=== PATIENT | male | born 2000 | race Caucasian/White ===

== ENCOUNTER 2020-05-19 07:03 | Inpatient (IN) | payer MEDICAID ==
[~2020-05-19] VITALS: Ht 172.7 cm; Wt 80.7 kg
[2020-05-19] MEDS ORDERED: SODIUM CHLORIDE 0.9% 1,000 ML IV ONE (08:07)
[2020-05-19] MEDS ORDERED: KETOROLAC 30MG/ML VIAL IV STA (08:07)
[2020-05-19] MEDS ORDERED: FAMOTIDINE 20MG/2ML VIAL IV STA (08:07)
[2020-05-19] MEDS ORDERED: ONDANSETRON HCL 4MG/2ML INJ IV STA (08:07)
[2020-05-19 08:24] LABS: CHLORIDE 106 mEq/L (98-107)
[2020-05-19 08:25] LABS: BASOPHILS % 0.3 % (0.0-2.0); EOSINOPHILS % 0.2 % (0.0-5.0); HEMOGLOBIN. 14.9 g/dL (14.0-18.0); LYMPHOCYTES % 13.7 % (20.0-50.0); MEAN CORPUSCULAR VOLUME 87.8 fL (80.0-94.0); MEAN PLATELET VOLUME 8.3 fl (7.4-10.4); MONOCYTES % 1.5 % (2.0-8.0); NEUTROPHILS % 84.3 % (40.0-76.0); PLATELET 475 x1000/uL (130-400); RED BLOOD CELL COUNT 5.13 mill/uL (4.7-6.1)
[2020-05-19 08:29] LABS: ETHANOL BLOOD < 10 mg/dL
[2020-05-19 08:47] LABS: INR 1.1; PROTHROMBIN TIME 11.4 sec (9.6-11.0)
[2020-05-19] MEDS ORDERED: PIPERACILLIN/TAZ 3.375G PREMIX 50 ML IV ONE ×2 (09:30→09:57)
[2020-05-19] MEDS ORDERED: CLONIDINE 0.1MG TABLET PO PRN (11:30)
[2020-05-19] MEDS ORDERED: ONDANSETRON HCL 4MG/2ML INJ IV PRN (11:30)
[2020-05-19] MEDS ORDERED: DIPHENHYDRAMINE 50MG/ML VIAL IV PRN (11:30)
[2020-05-19] MEDS ORDERED: ACETAMINOPHEN 325MG TABLET PO PRN (11:30)
[2020-05-19 11:31] LABS: CLARITY URINE CLEAR (CLEAR); COLOR URINE YELLOW (YELLOW); KETONES URINE 2+ (NEGATIVE); LEUKOCYTE ESTERASE URINE NEGATIVE (NEGATIVE); NITRITE URINE NEGATIVE (NEGATIVE); OCCULT BLOOD URINE NEGATIVE (NEGATIVE); PROTEIN URINE NEGATIVE (NEGATIVE); SPECIFIC GRAVITY URINE 1.015 (1.005-1.030)
[2020-05-19 12:03] LABS: *AMPHETAMINES SCREEN URINE NEGATIVE (NEGATIVE); *BARBITURATES SCREEN URINE NEGATIVE (NEGATIVE); *BENZODIAZEPINES SCREEN URINE NEGATIVE (NEGATIVE); *COCAINE SCREEN URINE NEGATIVE (NEGATIVE); CANNABINOID URINE SCREEN NEGATIVE (NEGATIVE); METHADONE URINE SCREEN NEGATIVE (NEGATIVE); OPIATES URINE SCREEN NEGATIVE (NEGATIVE); PHENCYCLIDINE URINE SCREEN NEGATIVE (NEGATIVE)
[2020-05-19 12:09] LABS: PHOSPHORUS 3.9 mg/dL (2.5-4.9)
[2020-05-19] MEDS: SODIUM CHLORIDE 0.9% 1,000 ML IV SCH (12:24)
[2020-05-19 14:29] VITALS: BP 126/70
[2020-05-19] MEDS ORDERED: PIPERACILLIN/TAZOBACTAM 3.375 G in DEXT 5% WATER 100 ML IV SCH (16:00)
[2020-05-19] MEDS: PIPERACILLIN/TAZOBACTAM 3.375 G in DEXT 5% WATER 100 ML IV SCH (17:29)
[2020-05-19] MEDS: MORPHINE SULFATE 2 MG/ML CPJ (NOT FOR IM USE) IV PRN (18:01)
[2020-05-19] MEDS ORDERED: OMEP20TA2 MT (19:53)
[2020-05-19 20:22] VITALS: BP 121/67
[2020-05-20] VITALS: BP 119/60
[2020-05-20] MEDS: PIPERACILLIN/TAZOBACTAM 3.375 G in DEXT 5% WATER 100 ML IV SCH ×5 (00:34→21:35)
[2020-05-20 04:00] VITALS: BP 94/72
[2020-05-20] MEDS: SODIUM CHLORIDE 0.9% 1,000 ML IV SCH ×2 (04:40→12:26)
[2020-05-20 07:46] LABS: BASOPHILS % 0.5 % (0.0-2.0); EOSINOPHILS % 0.5 % (0.0-5.0); HEMATOCRIT. 39.2 % (42.0-52.0); HEMOGLOBIN. 13.3 g/dL (14.0-18.0); LYMPHOCYTES % 18.5 % (20.0-50.0); MEAN CORPUSCULAR HEMOGLOBIN 29.1 pg (28.0-32.0); MEAN CORPUSCULAR VOLUME 86.1 fL (80.0-94.0); MEAN PLATELET VOLUME 8.8 fl (7.4-10.4); MONOCYTES % 4.4 % (2.0-8.0); NEUTROPHILS % 76.1 % (40.0-76.0); PLATELET 359 x1000/uL (130-400); RED BLOOD CELL COUNT 4.55 mill/uL (4.7-6.1)
[2020-05-20 07:49] LABS: CHLORIDE 108 mEq/L (98-107)
[2020-05-20 07:57] LABS: LDL CHOLESTEROL 57 mg/dL (5-100)
[2020-05-20 07:58] LABS: HDL CHOLESTEROL 38 mg/dL (40-59)
[2020-05-20 08:00] VITALS: BP 126/63
[2020-05-20 12:00] VITALS: BP 117/84
[2020-05-20 16:00] VITALS: BP 103/67
[2020-05-20 20:00] VITALS: BP 123/79
[2020-05-21] MEDS: MORPHINE SULFATE 2 MG/ML CPJ (NOT FOR IM USE) IV PRN ×4 (00:10→23:37)
[2020-05-21 00:28] VITALS: BP 134/102
[2020-05-21 04:00] VITALS: BP 122/89
[2020-05-21] MEDS: PIPERACILLIN/TAZOBACTAM 3.375 G in DEXT 5% WATER 100 ML IV SCH ×4 (04:46→22:14)
[2020-05-21 07:30] LABS: CHLORIDE 106 mEq/L (98-107)
[2020-05-21 08:00] VITALS: BP 94/60
[2020-05-21 08:03] LABS: HEMATOCRIT. 40.2 % (42.0-52.0); HEMOGLOBIN. 13.4 g/dL (14.0-18.0); MEAN CORPUSCULAR HEMOGLOBIN 28.7 pg (28.0-32.0); MEAN CORPUSCULAR VOLUME 86.4 fL (80.0-94.0); MEAN PLATELET VOLUME 9.1 fl (7.4-10.4); PLATELET 359 x1000/uL (130-400); RED BLOOD CELL COUNT 4.66 mill/uL (4.7-6.1); RED CELL DISTRIBUTION WIDTH 14.1 % (11.6-14.6)
[2020-05-21] MEDS: SODIUM CHLORIDE 0.9% 1,000 ML IV SCH (13:44)
[2020-05-21 16:00] VITALS: BP 112/72
[2020-05-21 16:36] LABS: PLATELET ESTIMATE NORMAL
[2020-05-21 20:00] VITALS: BP 129/83
[2020-05-22] VITALS: BP 126/65
[2020-05-22] MEDS: PIPERACILLIN/TAZOBACTAM 3.375 G in DEXT 5% WATER 100 ML IV SCH ×4 (03:58→22:50)
[2020-05-22] MEDS: SODIUM CHLORIDE 0.9% 1,000 ML IV SCH ×2 (03:59→13:46)
[2020-05-22 04:00] VITALS: BP 106/72
[2020-05-22 06:48] LABS: CHLORIDE 106 mEq/L (98-107)
[2020-05-22 06:49] LABS: BASOPHILS % 0.2 % (0.0-2.0); EOSINOPHILS % 0.2 % (0.0-5.0); HEMATOCRIT. 40.7 % (42.0-52.0); HEMOGLOBIN. 13.6 g/dL (14.0-18.0); LYMPHOCYTES % 14.3 % (20.0-50.0); MEAN CORPUSCULAR HEMOGLOBIN 28.9 pg (28.0-32.0); MEAN CORPUSCULAR VOLUME 86.2 fL (80.0-94.0); MEAN PLATELET VOLUME 8.7 fl (7.4-10.4); NEUTROPHILS % 84.3 % (40.0-76.0); PLATELET 330 x1000/uL (130-400); RED BLOOD CELL COUNT 4.72 mill/uL (4.7-6.1); RED CELL DISTRIBUTION WIDTH 13.8 % (11.6-14.6)
[2020-05-22 08:00] VITALS: BP 112/61
[2020-05-22] MEDS ORDERED: DIPHENHYDRAMINE 50MG/ML VIAL IV SCH (11:00)
[2020-05-22 12:00] VITALS: BP 119/64
[2020-05-22 16:00] VITALS: BP 123/80
[2020-05-22] MEDS: DEXT 5%/0.45% NACL 1000ML 1,000 ML IV SCH (18:06)
[2020-05-23] MEDS: PIPERACILLIN/TAZOBACTAM 3.375 G in DEXT 5% WATER 100 ML IV SCH ×4 (06:23→21:20)
[2020-05-23 06:46] LABS: BASOPHILS % 0.5 % (0.0-2.0); EOSINOPHILS % 1.7 % (0.0-5.0); HEMATOCRIT. 40.1 % (42.0-52.0); HEMOGLOBIN. 13.6 g/dL (14.0-18.0); LYMPHOCYTES % 33.1 % (20.0-50.0); MEAN CORPUSCULAR HEMOGLOBIN 29.2 pg (28.0-32.0); MEAN CORPUSCULAR VOLUME 85.8 fL (80.0-94.0); MEAN PLATELET VOLUME 8.9 fl (7.4-10.4); MONOCYTES % 7.7 % (2.0-8.0); PLATELET 335 x1000/uL (130-400); RED BLOOD CELL COUNT 4.67 mill/uL (4.7-6.1)
[2020-05-23 07:06] LABS: CHLORIDE 105 mEq/L (98-107)
[2020-05-23 08:00] VITALS: BP 122/82
[2020-05-23] MEDS ORDERED: KCL 20MEQ/100ML PREMIX 100 ML IV SCH (10:00)
[2020-05-23 12:00] VITALS: BP 112/78
[2020-05-23 13:40] LABS: INR 1.1; PROTHROMBIN TIME 11.4 sec (9.6-11.0)
[2020-05-23] MEDS ORDERED: IOHEXOL-300 100 ML BOTTLE ONE (13:46)
[2020-05-23 16:00] VITALS: BP 123/72
[2020-05-23 20:00] VITALS: BP 118/81
[2020-05-24] VITALS: BP 114/66
[2020-05-24] MEDS: DEXT 5%/0.45% NACL 1000ML 1,000 ML IV SCH ×3 (00:02→21:53)
[2020-05-24 04:00] VITALS: BP 122/73
[2020-05-24] MEDS: PIPERACILLIN/TAZOBACTAM 3.375 G in DEXT 5% WATER 100 ML IV SCH ×4 (04:50→21:53)
[2020-05-24 08:00] VITALS: BP 106/64
[2020-05-24 12:00] VITALS: BP 120/77
[2020-05-24] MEDS ORDERED: LEVO500T89 MT (13:13)
[2020-05-24] MEDS ORDERED: METR500T MT (13:13)
[2020-05-24 16:00] VITALS: BP 117/79
[2020-05-24 16:13] LABS: CHLORIDE 108 mEq/L (98-107)
[2020-05-24] MEDS ORDERED: PROPOFOL 200MG/20ML VIAL IV ONE (18:34)
[2020-05-24] MEDS ORDERED: ROCURONIUM BROMIDE 10MG/ML VIAL 5ML IV ONE (18:34)
[2020-05-24] MEDS ORDERED: LIDOCAINE HCL/PF 1% 10 MG/ML 5ML VIAL ONE (18:35)
[2020-05-24] MEDS ORDERED: MIDAZOLAM HCL 2 MG/2 ML VIAL ONE (18:35)
[2020-05-24] MEDS ORDERED: METOCLOPRAMIDE HCL 10MG/2ML VIAL ONE (19:09)
[2020-05-24] MEDS ORDERED: ONDANSETRON HCL 4MG/2ML INJ ONE (19:09)
[2020-05-24] MEDS ORDERED: SUCCINYLCHOLINE CHLORIDE 200MG/10ML IV ONE (19:09)
[2020-05-24 20:00] VITALS: BP 126/87
[2020-05-24] MEDS ORDERED: MEPERIDINE HCL/PF 25MG/ML CPJ IV PRN (20:00)
[2020-05-24] MEDS ORDERED: FENTANYL CITRATE/PF 50MCG/ML 2ML VIAL IV PRN (20:00)
[2020-05-24 23:44] LABS: HEMATOCRIT 42.5 % (42.0-52.0); HEMOGLOBIN 14.4 g/dL (14.0-18.0); MEAN CORPUSCULAR HEMOGLOBIN 28.7 pg (28.0-32.0); MEAN CORPUSCULAR VOLUME 84.9 fL (80.0-94.0); PLATELET 372 x1000/uL (130-400); RED BLOOD CELL COUNT 5.01 mill/uL (4.7-6.1); RED CELL DISTRIBUTION WIDTH 14.7 % (11.6-14.6)
[2020-05-24 23:53] LABS: CHLORIDE 108 mEq/L (98-107)
[2020-05-25] VITALS: BP 117/67
[2020-05-25 04:00] VITALS: BP 108/64
[2020-05-25] MEDS: DEXT 5%/0.45% NACL 1000ML 1,000 ML IV SCH (06:14)
[2020-05-25 08:00] VITALS: BP 116/73
[2020-05-25 12:00] VITALS: BP 115/74
[2020-05-25] MEDS ORDERED: AMOX-424 MT (13:22)
[2020-05-25 13:46] VITALS: BP 115/74
== END 2020-05-25 15:50 | disposition home or self-care (01) | DRG 720 ==
LOC: ER 07:03 → 6EST 11:14 → EDBEDREQ 11:16 → EDBEDREQTM 11:16 → ENRESERV 13:54 → UNDODISIN 05-23 15:27
PROVIDERS: ADMIT Internal Medicine; ATTEND Internal Medicine
PROC: 0F798ZZ Dilation of Common Bile Duct, Via Natural or Artificial Opening Endoscopic (ICD-10-PCS; principal; 2020-05-24)
PROC: BF101ZZ Fluoroscopy of Bile Ducts using Low Osmolar Contrast (ICD-10-PCS; 2020-05-24)
DX: A41.9 Sepsis, unspecified organism (principal); K80.63 Calculus of gallbladder and bile duct with acute cholecystitis with obstruction; R73.9 Hyperglycemia, unspecified
CPT/HCPCS: 36415; 71045; 74181; 74328; 76705; 80048; 80053; 80061; 80076; 80305; 80320; 81003; 83036; 83605; 83735; 84100; 84443; 84484; 85025; 85027; 93005; 93970; 99285; C1726; C1769; J0330; J1200; J1885; J2250; J2270; J2405; J2543; J2704; J2765; J3480; J3490; J7030; J7060; Q9967; G0480

== ENCOUNTER 2020-07-12 00:05 | Emergency (ER) | payer MEDICAID ==
[~2020-07-12] VITALS: Ht 172.7 cm; Wt 73.0 kg
[~2020-07-12 00:05] MED LIST: AMOX-424 MT; OMEP20TA2 MT
[2020-07-12] MEDS ORDERED: ONDANSETRON HCL 4MG/2ML INJ IV STA (01:09)
[2020-07-12] MEDS ORDERED: SODIUM CHLORIDE 0.9% 1,000 ML IV ONE (01:09)
[2020-07-12] MEDS ORDERED: MORPHINE SULFATE 4 MG/ML CPJ (NOT FOR IM USE) IV STA (01:09)
[2020-07-12] MEDS ORDERED: HYDROCODONE/ACETAMINOPHEN 5/325MG TABLET PO ONE (04:00)
[2020-07-12 04:15] VITALS: BP 139/89
== END 2020-07-12 04:26 | disposition home or self-care (01) ==
LOC: ER 00:05
DX: G89.18 Other acute postprocedural pain (principal); R10.84 Generalized abdominal pain; Z90.49 Acquired absence of other specified parts of digestive tract
CPT/HCPCS: 96361; 96374; 96375; 99285; J2270; J2405; J7030